=== PATIENT | male | born 1950 | race Caucasian/White ===

== ENCOUNTER → 2020-06-29 | Outpatient (CLI) | payer OTHER | LOC: LAB 12:26 | PROVIDERS: ATTEND Specialist | DX: Z01.812 Encounter for preprocedural laboratory examination (principal); Z20.822 Contact with and (suspected) exposure to COVID-19 ==

== ENCOUNTER → 2020-07-04 | Outpatient (CLI) | payer OTHER ==
[~2020-07-04] VITALS: Ht 175.3 cm; Wt 95.3 kg
[~2020-07-04] MED LIST: ADVIL200 M3 PO; AMBIEN 5 MG TABL5 M1 PO; BENICAR20 MG PO; CALCIUM 500-VI1 EAC1 PO; DICLOFENAC SODI75 MG PO; GLUCOSAMINE &1 EACH PO; HEMP OIL PO; MULTI VITAMIN1 EACH PO; PROBIOTIC1 EAC7 PO; PROTONIX40 M4 PO; ROSUVASTATIN CA10 MG PO; TRICOR145 MG PO; TYLENOL325 M1 PO; VITAMIN D3100 MCG PO; XANAX 0.25 MG0.25 MG PO; ZETIA10 MG PO; ZYRTEC10 M4 PO
--- NOTE | ~2020-07-04 | O ---
[facility] [place] [address] OPERATIVE REPORT Name: LJ NAM Room #: REG [facility].#: [id number] Admission: 07/04/20 Attend Phys: Barry Villalba Discharge: Date of : 54 Report #: [id number] THIS REPORT FOR: cc: Thais Norman MD, Jennifer L MD McElhinney, Christian C. MD ~ DOC #: [id number] cc: MD Barry Rhodes MD DATE OF SERVICE: 07/04/2020 PROCEDURE PERFORMED: Colonoscopy with biopsies. HISTORY OF PRESENT ILLNESS: The patient is a 70-year-old male who presents today for routine followup. Last colonoscopy with multiple tubular adenomatous polyps removed in 02/2017. He denies any symptoms, no family history of colon cancer. DESCRIPTION OF PROCEDURE: The risks and benefits of the procedure were explained to the patient, those risks including but not limited to bleeding, perforation and the risk of sedation. He understood these risks and gave informed consent. Sedation was given using propofol per anesthesia. Next, a digital rectal exam was initially performed, which was normal. Next, using a standard Olympus colonoscope, the scope was placed in the patient's anus and advanced under direct vision into the cecum, the overall prep was excellent. The cecum and ileocecal valve were normal in appearance. Ascending, transverse and descending colon were normal. In the sigmoid colon, two 3-4 mm sessile polyps are noted, both were removed with cold forceps. The rectal mucosa was normal. On retroflexion, small nonbleeding internal hemorrhoids were noted. The scope was then withdrawn and the procedure terminated. The patient tolerated the procedure well. IMPRESSION: 1. Two small colonic polyps. 2. Small internal hemorrhoids. 3. Otherwise, normal colonoscopy. RECOMMENDATIONS: 1. Await biopsy results. 2. Repeat colonoscopy in 5 years. Thank you for allowing me to participate in his care. Barry Richards MD [facility]/[address] [address] OPERATIVE REPORT Name: LJ NAM Room #: REG [facility] [place]#: [id number] Admission: 07/04/20 Attend Phys: Barry Villalba Discharge: Date of : 54 Report #: [id number] By: [id number] Barry Richards MD /nt
--- NOTE | 2020-07-06 17:07 | PATH ---
[facility] [address] [place] [address] PATHOLOGY RPT PROCEDURE Name: LJ NAM Room #: REG [facility].#: [id number] Admission: 07/04/20 Date of : 54 Discharge: Report #: [id number] Path Case #: [id number] [facility] Accession Number: [id number] . 01 Material submitted: . sigmoid colon - SIGMOID COLON POLYP X2. Modifiers: X2 . 01 Clinical history: . DTS/COLONOSCOPY/HISTORY OF POLYPS . 02 Diagnosis: Polyp x2, sigmoid colon, endoscopic biopsy: - Tubular adenoma identified in multiple fragments. - Negative for high grade dysplasia. . (IUV:mml; 07/06/2020) QLM 07/06/2020 1222 Local . 02 Electronically signed: . Chanelle Stout MD, Pathologist NPI- [id number] . 01 Gross description: . The specimen is received in formalin, labeled "Lj Nam, sigmoid colon polyp". Received are four segments of pale acharya tissue ranging in size from 0.1-0.3 cm in maximum dimensions. The specimen is submitted entirely in cassette A1. (CAA; 07/05/2020) QA/QA 07/05/2020 1554 Local . 02 Pathologist provided ICD-10: D12.5 . 02 CPT . 800213 Specimen Comment: A courtesy copy of this report has been sent to [phone] Specimen Comment: [id number] Specimen Comment: Report sent to / DR LIU Performed at: [address], [place] [id number] MD Davidson Mahoney MD Phone: [phone] Performed at: [address] [id number] MD Chanelle Stout MD Phone: [phone]
== END | disposition home or self-care (01) ==
LOC: GI 09:31
PROVIDERS: ATTEND Specialist
DX: Z12.11 Encounter for screening for malignant neoplasm of colon (principal); Z86.010 Personal history of colon polyps; D12.5 Benign neoplasm of sigmoid colon; K64.8 Other hemorrhoids; K21.9 Gastro-esophageal reflux disease without esophagitis; I10 Essential (primary) hypertension; E78.5 Hyperlipidemia, unspecified; Z98.890 Other specified postprocedural states; Z79.899 Other long term (current) drug therapy; Z90.49 Acquired absence of other specified parts of digestive tract; Z98.41 Cataract extraction status, right eye; Z98.42 Cataract extraction status, left eye; Z87.891 Personal history of nicotine dependence
CPT/HCPCS: 62110; 62900